=== PATIENT | male | born 1985 | race Caucasian/White ===

== ENCOUNTER 2017-06-16 18:48 | Emergency (ER) | payer OTHER ==
[~2017-06-16] VITALS: Ht 177.8 cm; Wt 124.6 kg
[~2017-06-16 18:48] MED LIST: CLOB1TAB32 PO
[2017-06-16 18:53] VITALS: TEMP 36.7; Ht 177.8 cm; Wt 124.6 kg
[2017-06-16] MEDS ORDERED: KETOROLAC TROMETHAMINE 60 MG/2 ML VIAL IM STA (19:08)
--- NOTE | 2017-06-16 19:49 | DIAGNOSTIC IMAGING REPORT ---
L-SPINE MIN 4 VIEWS ROUTINE, THORACIC SPINE 3 VIEWS ROUTINE HISTORY: 31 years-old Male low back pain s/p twisting injury acute low back pain status post twisting injury COMPARISON: CT abdomen and pelvis 10/20/2013 TECHNIQUE: 5 views of the lumbar spine and 3 views of the thoracic spine FINDINGS: THORACIC: No acute fracture, subluxation or significant degenerative changes. Imaged lung malin and soft tissues appear unremarkable. Metallic radiodensity projecting over the shoulders is likely external to the patient. LUMBAR: 5 nonrib-bearing lumbar type vertebral segments. No spondylolysis or spondylolisthesis. No acute fracture, subluxation or significant degenerative changes. Imaged soft tissues are unremarkable. IMPRESSION: No acute fracture, subluxation or significant degenerative changes. The above report was generated using voice recognition software. It may contain grammatical, syntax or spelling errors. Electronically signed by: Sd Chacon M.D. 06/16/2017 7:47 PM Dictated Date/Time: 06/16/2017 7:44 PM
--- NOTE | 2017-06-16 20:00 | EMERGENCY ROOM VISIT NOTE ---
ED Visit Note First contact with patient: 19:00 CHIEF COMPLAINT: Low back pain HISTORY OF PRESENT ILLNESS: This 31-year-old male patient presents to the emergency department, ambulatory, on crutches, complaining of pain in the low back which began approximately 8 hours ago at work. The patient states he was slinging blocks onto a skid today at work, when he began experiencing mid to low back pain after throwing a block. The patient was performing a twisting motion while throwing the heavy blocks. He describes pain in his mid to low spine. Immediately after the injury, the patient went to lay down in his truck , and has been laying in his truck ever since. The pain is now constant and worse with movement. The patient notes the pain as sharp and a 10/10. The patient has taken hydrocodone with out relief of the pain. The patient denies any loss of control of their bowel or bladder functions. There has been no leg numbness or weakness, and no change in sensation. No nausea or vomiting or abdominal pain. No chest pain or shortness of breath. The patient has had prior back injuries, bulging disc at L2 and fractures of T1 through T8 after falling off of a roof in 2013. No dysuria or increased urinary frequency. REVIEW OF SYSTEMS: A 10 system review of systems was performed with positives and pertinent negatives listed in the history of present illness. All other systems were reviewed and are negative. ALLERGIES: None MEDICATIONS: Onfi, Lamictal PMH: Brain tumor SOCIAL HISTORY: The patient lives locally with family. He denies drug, alcohol, tobacco use. PHYSICAL EXAM: VITALS: Vitals are noted on the nurse's note and reviewed by myself. Vital signs stable. GENERAL: This is a 31-year-old white male, in no acute distress, nondiaphoretic , well-developed well-nourished. SKIN: The skin was without rashes, erythema, edema, or bruising. Capillary refill less than 2 seconds. NECK: Supple without nuchal rigidity. No cervical spine tenderness. No paraspinous muscle tenderness. HEART: Regular rate and rhythm without murmurs gallops or rubs. LUNGS: Clear to auscultation bilaterally without wheezes, rales or rhonchi. ABDOMEN: Positive bowel sounds x 4. Normal tympanic percussion. Soft, nontender, without masses or organomegaly. Cuevas sign negative. MUSCULOSKELETAL: No muscle atrophy, erythema, or edema noted of the back. There is no tenderness over the lumbar spinous processes. There is no tenderness over the paraspinous muscles bilaterally. There is no tenderness over the thoracic spine or paraspinous muscles. There are muscle spasms present. The patient is slow to move around with maximum tenderness with sitting from a lying position. When asked, he points to the mid to low back which hurts, only with position changes. Negative bilateral straight leg raise test. NEURO: Patient was alert and oriented to person place and time. Normal sensation to light and sharp touch. Deep tendon reflexes 2+ in the lower extremities. Dorsalis pedis pulse 2+ bilaterally. Strength 5/5 and equal in the bilateral lower extremities. RADIOLOGY: L-SPINE MIN 4 VIEWS ROUTINE, THORACIC SPINE 3 VIEWS ROUTINE HISTORY: 31 years-old Male low back pain s/p twisting injury acute low back pain status post twisting injury COMPARISON: CT abdomen and pelvis 10/20/2013 TECHNIQUE: 5 views of the lumbar spine and 3 views of the thoracic spine FINDINGS: THORACIC: No acute fracture, subluxation or significant degenerative changes. Imaged lung malin and soft tissues appear unremarkable. Metallic radiodensity projecting over the shoulders is likely external to the patient. LUMBAR: 5 nonrib-bearing lumbar type vertebral segments. No spondylolysis or spondylolisthesis. No acute fracture, subluxation or significant degenerative changes. Imaged soft tissues are unremarkable. IMPRESSION: No acute fracture, subluxation or significant degenerative changes. The above report was generated using voice recognition software. It may contain grammatical, syntax or spelling errors. Electronically signed by: Sd Chacon M.D. 06/16/2017 7:47 PM Dictated Date/Time: 06/16/2017 7:44 PM EMERGENCY DEPARTMENT COURSE: The patient was seen and evaluated as above. X- rays performed and reviewed by myself and radiologist as above. The patient was given 60 mg Toradol IM, and noted mild if any improvement in his symptoms. I discussed with the patient proper outpatient management including anti- inflammatories and muscle relaxers. The patient is agreeable. I did offer him a walker or cane to help with ambulation, but he states he is comfortable using the crutches. He is given a home pack for Flexeril to be taken to help with muscle spasms. He will be given a prescription for Flexeril to the pharmacy. The patient was encouraged to follow-up outpatient with his primary care provider and/or employee health provider. Discharge instructions reviewed, and the patient was discharged home in good condition. I attest that I have personally reviewed the patient's current medication list. Patient was found to have normal blood pressure on screening and does not require follow-up. Etiologies such as lumbago, sciatica, cauda equina, epidural abscess, osteomyelitis, fracture, aortic disease, metastatic disease, infection, renal colic, gastrointestinal, as well as others were entertained. 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 Brizuela) Status: Chronic (2) H/O knee surgery Status: Chronic (3) H/O shoulder surgery Status: Chronic Current/Historical Medications Scheduled Lamotrigine (Lamictal), 300 MG PO BID [Clobazam (Onfi)], 10 MG PO HS Scheduled PRN Cyclobenzaprine Hcl (Flexeril), 10 MG PO TID PRN for Muscle Spasms Allergies Coded Allergies: BEE STING (Verified Allergy, Severe, SWELLING, 11/05/15) NO KNOWN DRUG ALLERGIES (Verified Allergy, Mild, ., 11/05/15) Vital Signs Date Time Temp Pulse Resp B/P (MAP) Pulse Ox O2 Delivery O2 Flow Rate FiO2 06/16/17 18:53 36.7 86 18 119/85 99 Room Air Medications Administered Medications (Trade) Dose Ordered Sig/Joni Route Start Time Stop Time Status Last Admin Dose Admin Ketorolac Tromethamine (Toradol Inj) 60 mg NOW STAT IM 06/16/17 19:08 06/16/17 19:10 DC 06/16/17 19:16 60 MG Departure Information Impression Primary Impression: Strain of lumbar region Additional Impression: Strain of thoracic region Dispostion Home / Self-Care Condition GOOD Prescriptions Cyclobenzaprine Hcl (FLEXERIL) 10 Mg Tab 10 MG PO TID Y for Muscle Spasms, #15 TAB Prov: Gisella York PA-C 06/16/17 Referrals Jace Morton PA-C (PCP) Patient Instructions ED Low Back Pain Injury, Low Back Pain Self Care, [facility] Additional Instructions You have been treated in the Emergency Department for Back Pain. You have been prescribed Flexeril (cyclobenzaprine) 1 tab orally, three times per day. Do NOT exceed 30 mg (3 tabs) per day. Take your first dose at bedtime as it can make you drowsy. Always take all medications as prescribed. For pain control, you can use the following [id number] medicines (if >12 yo): Ibuprofen(Motrin, Advil) may be used for fever or pain. Use 600mg every six hours as needed. Take with food. Avoid using more than 2400mg in a 24 hour period. Do not use 2400mg per day for more than three consecutive days without physician direction. Prolonged inappropriate use can lead to stomach upset or ulcers. (AND/OR) Acetaminophen(Tylenol) may be used for fever or pain. Use 1000mg every six hours as needed. Avoid using more than 3000mg in a 24 hour period. If this is an acute injury, ice can be applied to the area of pain for the first 3 days to help decrease pain and inflammation. After the first 3 days, a heating pad can be used over the area for continued soothing relief. You should schedule a follow-up appointment in 2-3 days with your Primary Care Provider for further evaluation and treatment of your back pain. Return to the Emergency Department if your current symptoms worsen despite treatment course outlined above, or if you develop any of the following symptoms : intractable pain despite aforementioned treatment course, loss of control of your bowel or bladder, numbness or tingling in your groin, or development of a fever. Problem Qualifiers Primary Impression: Strain of lumbar region Encounter type: initial encounter Qualified Codes: S39.012A - Strain of muscle, fascia and tendon of lower back, initial encounter Additional Impression: Strain of thoracic region Encounter type: initial encounter Qualified Codes: S29.019A - Strain of muscle and tendon of unspecified wall of thorax, initial encounter
[2017-06-16] MEDS ORDERED: CLOBAZAM PO (20:02)
[2017-06-16] MEDS ORDERED: FLEXERIL HOME PACK 10 MG VIAL PO STA (20:05)
[2017-06-16] MEDS ORDERED: CYCL10TA6 PO (20:08)
[2017-06-16 20:23] VITALS: BP 119/85; PULSE 86; O2SAT 99
[2017-06-16] MEDS ORDERED: LAMO100T16 PO (22:22)
== END 2017-06-16 20:24 | disposition home or self-care (01) ==
LOC: C.EDB 18:50 → C.EDD 20:24
DX: S39.012A Strain of muscle, fascia and tendon of lower back, initial encounter (principal); S29.019A Strain of muscle and tendon of unspecified wall of thorax, initial encounter; X50.3XXA Overexertion from repetitive movements, initial encounter; Y99.0 Civilian activity done for income or pay; Y92.89 Other specified places as the place of occurrence of the external cause; Z79.899 Other long term (current) drug therapy; Z87.442 Personal history of urinary calculi; G40.909 Epilepsy, unspecified, not intractable, without status epilepticus; Z91.030 Bee allergy status